=== PATIENT | male | born 1990 | race Caucasian/White ===

== ENCOUNTER 2016-09-22 14:50 | Emergency (ER) | payer BC, MEDICAID ==
[2016-09-22] MEDS ORDERED: ACETAMINOPHEN 325 MG TABLET PO ONE (15:08)
--- NOTE | 2016-09-22 15:09 | ER Document Report ---
ED Medical Screen (RME) - General Stated Complaint: CONGESTION,BODY ACHES,COUGH Notes: 26 yo male c/o flu like symptoms x 1 day. no flu shot. no sig PHHx. - Related Data Allergies/Adverse Reactions: No Known Allergies Allergy (Verified 09/22/16 15:09) Physical Exam - Vital signs Vitals: Temp Pulse Resp BP Pulse Ox 100.1 F 120 H 16 132/75 H 98 09/22/16 15:04 09/22/16 15:04 09/22/16 15:04 09/22/16 15:04 09/22/16 15:04 Course - Vital Signs Vital signs: Temp Pulse Resp BP Pulse Ox 100.1 F 120 H 16 132/75 H 98 09/22/16 15:04 09/22/16 15:04 09/22/16 15:04 09/22/16 15:04 09/22/16 15:04
[2016-09-22] MEDS ORDERED: IBUPROFEN 800 MG TABLET PO ONE (17:06)
--- NOTE | 2016-09-22 17:08 | ER Document Report ---
HPI - HPI Patient complains to provider of: body aches Onset: This morning Quality of pain: Achy Severity: Severe Pain Level: 5 Context: She presents to the emergency department with complaints of body aches that started this morning. Patient did not get his flu vaccine. He denies other symptoms like vomiting diarrhea. He reports he may have felt warm. Denies other symptoms such as cough sore throat. Associated Symptoms: None. denies: Diarrhea, Fever, Nausea, Vomiting Exacerbated by: Denies Relieved by: Denies Similar symptoms previously: No Recently seen / treated by doctor: No - CARDIOVASCULAR Cardiovascular: DENIES: Chest pain - DERM Skin Color: Normal Past Medical History - General Information source: Patient - Social History Smoking Status: Never Smoker Cigarette use (# per day): No Chew tobacco use (# tins/day): No Frequency of alcohol use: None Drug Abuse: None Occupation: none Family History: Reviewed & Not Pertinent Patient has suicidal ideation: No Patient has homicidal ideation: No - Medical History Medical History: Negative Renal/ Medical History: Denies: Hx Peritoneal Dialysis Surgical Hx: Negative Vertical Provider Document - CONSTITUTIONAL Agree With Documented VS: Yes Exam Limitations: No Limitations General Appearance: WD/WN, No Apparent Distress - nontoxic looking - INFECTION CONTROL TRAVEL OUTSIDE OF THE [place] IN LAST 30 DAYS: No - HEENT HEENT: Atraumatic, Normal ENT Exam, Normocephalic. negative: Pharyngeal Erythema, Tympanic Membrane Red - NECK Neck: Normal Inspection, Supple. negative: Lymphadenopathy-Left, Lymphadenopathy-Right - RESPIRATORY Respiratory: Breath Sounds Normal, No Respiratory Distress O2 Sat by Pulse Oximetry: 98 - CARDIOVASCULAR Cardiovascular: Regular Rhythm, Tachycardia - GI/ABDOMEN Gastrointestinal: Abdomen Soft, Abdomen Non-Tender - BACK Back: Normal Inspection - MUSCULOSKELETAL/EXTREMETIES Musculoskeletal/Extremeties: XIN ALVAREZ - NEURO Level of Consciousness: Awake, Alert, Appropriate Motor/Sensory: No Motor Deficit - DERM Integumentary: Warm, Dry, No Rash Course - Re-evaluation Re-evalutation: 09/22/16 1 Patient instructed on the importance of monitoring his temperature take Tylenol Motrin as indicated push fluids. He verbalized understanding to all instructions. No cough noted during the entire assessment and interview. - Vital Signs Vital signs: Temp Pulse Resp BP Pulse Ox 100.1 F 120 H 16 132/75 H 98 09/22/16 15:04 09/22/16 15:04 09/22/16 15:04 09/22/16 15:04 09/22/16 15:04 Discharge - Discharge Clinical Impression: Flu-like symptoms, Elevated blood pressure reading Condition: Stable Disposition: HOME, SELF-CARE Instructions: Acetaminophen, Influenza ([facility]) [id number] Additional Instructions: *You have been evaluated for flu like symptoms *Increase fluid intake as discussed *Take ibuprofen or tylenol as indicated for pain *Monitor your temperature, take Tylenol as indicated *Follow up with a primary care provider within one week for recheck *Good handwashing *Monitor your blood pressure. Your blood pressure was elevated today. This may be because you were anxious, in pain or because you need medication. It is important to follow up with your primary care provider for full evaluation. *Return to ED for worsening condition, changes, needs Forms: Elevated Blood Pressure
[2016-09-22 17:25] VITALS: BP 145/80
== END 2016-09-22 17:22 | disposition home or self-care (01) ==
LOC: ER 14:50
DX: R03.0 Elevated blood-pressure reading, without diagnosis of hypertension (principal); M79.1 Myalgia
CPT/HCPCS: 99283

== ENCOUNTER 2018-03-18 21:11 | Emergency (ER) | payer SELFPAY ==
[2018-03-18 21:19] VITALS: BP 153/90
--- NOTE | 2018-03-18 22:59 | ER Document Report ---
HPI - HPI Patient complains to provider of: left ear pain Pain Level: 4 Context: Patient is a 28-year-old male that comes to the emergency department for chief complaint of left ear pain. Symptoms started 3 days ago but have worsened. He states last night he is having trouble sleeping. He is hearing some popping sounds in the ear as well. He denies bleeding, discharge, fever, congestion, cough, nausea or vomiting. He denies any daily prescribed medications. He took ibuprofen earlier for pain. Past Medical History - General Information source: Patient - Social History Smoking Status: Never Smoker Frequency of alcohol use: Occasional Drug Abuse: None Lives with: Spouse/Significant other Family History: Reviewed & Not Pertinent - Medical History Medical History: Negative Renal/ Medical History: Denies: Hx Peritoneal Dialysis Surgical Hx: Negative - Immunizations Hx Diphtheria, Pertussis, Tetanus Vaccination: Yes Vertical Provider Document - CONSTITUTIONAL General Appearance: WD/WN, No Apparent Distress - INFECTION CONTROL TRAVEL OUTSIDE OF THE [place] IN LAST 30 DAYS: No - HEENT HEENT: Atraumatic, Normocephalic. negative: Normal ENT Exam - Left-sided otitis media with purulent effusion, no perforation, unremarkable canal, no tragal tenderness, normal mastoid, unremarkable ENT exam otherwise including oral pharyngeal exam and nasal exam. - NECK Neck: Normal Inspection - RESPIRATORY Respiratory: Breath Sounds Normal, No Respiratory Distress - CARDIOVASCULAR Cardiovascular: Regular Rate, Regular Rhythm - GI/ABDOMEN Gastrointestinal: Abdomen Soft, Abdomen Non-Tender - BACK Back: Normal Inspection - NEURO Level of Consciousness: Awake, Alert, Appropriate - DERM Integumentary: Warm, Dry, No Rash Course - Re-evaluation Re-evalutation: Physical examination shows otitis media, no other concerning a normality is noted. Patient mildly hypertensive, vital signs otherwise unremarkable. Discussed follow-up, expectations, return precautions. Patient states understanding and agreement. - Vital Signs Vital signs: Temp Pulse Resp BP Pulse Ox 98 F 60 18 153/90 H 98 03/18/18 21:16 03/18/18 21:16 03/18/18 21:16 03/18/18 21:16 03/18/18 21:16 Discharge - Discharge Clinical Impression: Left ear pain Otitis media Qualifiers: Otitis media type: suppurative Chronicity: acute Laterality: left Recurrence: not specified as recurrent Spontaneous tympanic membrane rupture: without spontaneous rupture Qualified Code(s): H66.002 - Acute suppurative otitis media without spontaneous rupture of ear drum, left ear Condition: Stable Disposition: HOME, SELF-CARE Additional Instructions: Your examination is consistent with a left middle ear infection. Take antibiotics as prescribed. [id number] nasal spray such as Nasonex or Flonase can help reduce symptoms and prevent symptoms in the future. Take ibuprofen or Tylenol during the day, use medication given here only at night if needed to sleep. Follow-up with primary care. Return if you worsen including fever of 100.4 or greater, severe pain, dizziness, vomiting, or any other concerning symptoms. Prescriptions: Amoxicillin Trihydrate [Amoxil 875 mg Tablet] 1 tab PO BID #20 tablet Forms: Elevated Blood Pressure
[2018-03-18] MEDS: AMOXICILLIN TRIHYDRATE 500 MG CAPSULE PO ONE (23:10)
[2018-03-18] MEDS: HYDROCODONE/ACETAMINOPHEN 5-325 MG (6 TAB/ER DISP) PO PRN (23:11)
== END 2018-03-18 23:17 | disposition home or self-care (01) ==
LOC: ER 21:11
DX: H66.002 Acute suppurative otitis media without spontaneous rupture of ear drum, left ear (principal); H92.02 Otalgia, left ear
CPT/HCPCS: 99282

== ENCOUNTER 2019-02-02 22:59 | Emergency (ER) | payer OTHER ==
[2019-02-03] MEDS ORDERED: NAPROXEN 250 MG TABLET PO ONE (01:21)
[2019-02-03] MEDS ORDERED: DIAZEPAM 5 MG TABLET PO ONE (01:21)
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
[2019-02-03 01:37] VITALS: BP 137/96
== END 2019-02-03 01:35 | disposition home or self-care (01) ==
LOC: ER 22:59
DX: M54.9 Dorsalgia, unspecified (principal); R10.9 Unspecified abdominal pain; V53.5XXA Driver of pick-up truck or van injured in collision with car, pick-up truck or van in traffic accident, initial encounter
CPT/HCPCS: 99283

== ENCOUNTER 2019-02-04 21:32 | Emergency (ER) | payer OTHER ==
[2019-02-04] MEDS ORDERED: OXYCODONE-ACETAMINOPHEN 5-325 MG TABLET PO ONE (23:15)
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
[2019-02-05 00:13] LABS: ABSOLUTE BASOPHILS # (AUTO) 0.1 10^3/uL (0.0-0.2); ABSOLUTE EOSINOPHILS # (AUTO) 0.2 10^3/uL (0.0-0.6); ABSOLUTE LYMPHOCYTES (AUTO) 2.6 10^3/uL (0.5-4.7); ABSOLUTE MONOCYTES (AUTO) 0.5 10^3/uL (0.1-1.4); ABSOLUTE NEUT (AUTO) 4.2 10^3/uL (1.7-8.2); BASOPHILS % (AUTO) 0.8 % (0-2); EOSINOPHILS % (AUTO) 3.2 % (0-6); HEMATOCRIT 44.6 % (37.9-51.0); LYMPHOCYTES % (AUTO) 34.4 % (13-45); MEAN CORPUSCULAR HEMOGLOBIN 30.7 pg (27.0-33.4); MEAN CORPUSCULAR HGB CONC 35.8 g/dL (32.0-36.0); MEAN CORPUSCULAR VOLUME 86 fl (80-97); MONOCYTES % (AUTO) 6.9 % (3-13); PLATELET COUNT 189 10^3/uL (150-450); RED CELL DISTRIBUTION WIDTH 13.2 % (11.5-14.0); SEGMENTED NEUTROPHILS % (AUTO) 54.7 % (42-78); TOTAL CELLS COUNTED % (AUTO) 100 %; WHITE BLOOD COUNT 7.7 10^3/uL (4.0-10.5)
[2019-02-05 00:16] LABS: APPEARANCE,URINE CLEAR; BILIRUBIN,URINE NEGATIVE (NEGATIVE); COLOR,URINE YELLOW; GLUCOSE, URINE NEGATIVE (NEGATIVE); KETONES,URINE NEGATIVE (NEGATIVE); LEUKOCYTE ESTERASE,URINE NEGATIVE (NEGATIVE); NITRITE,URINE NEGATIVE (NEGATIVE); PROTEIN,URINE NEGATIVE (NEGATIVE); URINE SPECIFIC GRAVITY 1.019
[2019-02-05 00:31] LABS: ALANINE AMINOTRANSFERASE 53 U/L (21-72); ALBUMIN 4.7 g/dL (3.5-5.0); ALKALINE PHOSPHATASE 62 U/L (38-126); ANION GAP 10 (5-19); ASPARTATE AMINO TRANSFERASE 31 U/L (17-59); BILIRUBIN,DIRECT 0.3 mg/dL (0.0-0.4); BILIRUBIN,TOTAL 0.5 mg/dL (0.2-1.3); BLOOD UREA NITROGEN 14 mg/dL (7-20); CALCIUM 9.6 mg/dL (8.4-10.2); CARBON DIOXIDE 26 mmol/L (22-30); CHLORIDE 103 mmol/L (98-107); GLUCOSE 91 mg/dL (75-110); POTASSIUM 4.6 mmol/L (3.6-5.0); SODIUM 138.8 mmol/L (137-145); TOTAL PROTEIN 7.7 g/dL (6.3-8.2)
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
[2019-02-05 02:01] VITALS: BP 136/75
== END 2019-02-05 02:01 | disposition home or self-care (01) ==
LOC: ER 21:32
DX: S30.1XXA Contusion of abdominal wall, initial encounter (principal); R10.9 Unspecified abdominal pain; V49.60XA Unspecified car occupant injured in collision with unspecified motor vehicles in traffic accident, initial encounter
CPT/HCPCS: 36415; 74177; 80053; 81001; 85025; 99284

== ENCOUNTER 2019-02-17 23:12 | Emergency (ER) | payer OTHER ==
--- NOTE | 2019-02-18 02:30 | RADIOLOGY REPORT (SQ) ---
EXAM DESCRIPTION: XR CHEST 2 VIEWS COMPLETED DATE/TME: 02/18/2019 02:06 CLINICAL HISTORY: 29 years, Male, cough x2 weeks, worsening Comparison: None FINDINGS: No focal lung consolidation. No pleural effusion. No pneumothorax. Cardiac and mediastinal silhouette is unremarkable. No acute osseous abnormality. Soft tissues are unremarkable. IMPRESSION: No acute findings. No focal lung consolidation.
[2019-02-18] MEDS ORDERED: IPRATROPIUM/ALBUTEROL 0.5-2.5 MG/3 ML AMPUL NEB ONE (02:43)
[2019-02-18] MEDS ORDERED: DEXAMETHASONE SOD PHOS INJ 10 MG/1 ML VIAL IM ONE (02:43)
[2019-02-18] MEDS ORDERED: BENZONATATE 100 MG CAPSULE PO ONE (02:43)
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
[2019-02-18] MEDS ORDERED: ALBUTEROL SULFATE HFA (90 MCG/PUFF) 8 GM MDI (1 MDI/ER DISP) IH ONE (03:19)
[2019-02-18 03:30] VITALS: BP 126/78
== END 2019-02-18 03:30 | disposition home or self-care (01) ==
LOC: ER 23:12
DX: J40 Bronchitis, not specified as acute or chronic (principal)
CPT/HCPCS: 94640; 99283; 96372; 71046; J1100; J3490; J7620

== ENCOUNTER 2019-02-27 14:37 | Emergency (ER) | payer OTHER ==
[2019-02-27] MEDS ORDERED: LIDOCAINE 2% VISCOUS SOLN 20 ML UDCUP PO ONE (15:44)
[2019-02-27] MEDS ORDERED: KETOROLAC TROMETHAMINE 60 MG/2 ML SDV IM ONE (15:44)
--- NOTE | 2019-02-27 15:50 | ER Document Report ---
ED General - General Chief Complaint: Breathing Difficulty Stated Complaint: HEADACHE Time Seen by Provider: 02/27/19 15:36 Primary Care Provider: [facility] [NO LOCAL MD] - Follow up as needed TRAVEL OUTSIDE OF THE [place] IN LAST 30 DAYS: No - HPI Notes: 29 year old male to the ED with C/O persistent cough, tussive chest pain, sore throat, headache, nasal congestion that has been ongoing for two weeks. He was seen here February 17 for the same and diagnosed with Bronchitis. States that he was given tessalon perles. States he has been taking that plus an inhaler and mucinex and he has not gotten better. States that he has been coughing quite alot as well as sneezing. Every time he coughs, he has sharp pain in his throat and in his chest. On February 17, he had a negative CXR. He is not producing any sputum. Reports subjective fevers at home, but none measured. He states he - Related Data Allergies/Adverse Reactions: No Known Allergies Allergy (Verified 02/27/19 14:55) Past Medical History - Social History Smoking Status: Never Smoker Frequency of alcohol use: Social Drug Abuse: None Family History: Reviewed & Not Pertinent Patient has suicidal ideation: No Patient has homicidal ideation: No Renal/ Medical History: Denies: Hx Peritoneal Dialysis - Immunizations Hx Diphtheria, Pertussis, Tetanus Vaccination: Yes Review of Systems - Review of Systems Constitutional: Chills, Fever - subjective fever, Malaise EENT: Ear pain, Nose congestion, Throat pain Cardiovascular: No symptoms reported, See HPI, Chest pain - tussive chest pain, Heart racing, Orthopnea, Syncope, Dizziness, Lightheaded. denies: Palpitations, Dyspnea, Edema Respiratory: Cough, Hurts to breathe, Sputum Gastrointestinal: Abdominal pain, Diarrhea, Nausea, Vomiting Genitourinary: No symptoms reported Musculoskeletal: No symptoms reported, See HPI Skin: No symptoms reported -: Yes All other systems reviewed and negative Physical Exam - Vital signs Vitals: Temp Pulse Resp BP Pulse Ox 98.1 F 109 H 17 143/84 H 96 02/27/19 14:59 02/27/19 14:59 02/27/19 14:59 02/27/19 14:59 02/27/19 14:59 Interpretation: Normal - General General appearance: Appears well, Alert - HEENT Head: Normocephalic, Atraumatic Eyes: Normal Ears: Normal External canal: Normal Tympanic membrane: Normal Sinus: Normal Nasal: Clear rhinorrhea Mouth/Lips: Normal Pharynx: Erythema - injection to the posterior oropharynx with cobblestoning, Post nasal drainage. No: Exudate, Peritonsillar abscess, Retropharyngeal abscess, Tonsillar hypertrophy, Uvular edema, Potential airway comprom. - Respiratory Respiratory status: No respiratory distress. No: Respiratory distress, Depressed respirations, Labored, Pursed lip breathing, Retractions, Tachypnea, Tripod position Chest status: Tender, Pain with cough, Pain with deep breathing. No: Nontender, Chest mass, Ecchymosis, No pleuritic chest pain Breath sounds: Normal, Nonproductive cough, Other. No: Decreased air movement, Rales, Rhonchi, Stridor, Wheezing Chest palpation: Normal - Cardiovascular Rhythm: Regular Heart sounds: Normal auscultation Murmur: No - Abdominal Inspection: Normal Distension: No distension Bowel sounds: Normal Tenderness: Nontender Organomegaly: No organomegaly - Back Back: Normal, Nontender - Neurological Neuro grossly intact: Yes Cognition: Normal Orientation: AAOx4 [place] Coma Scale Eye Opening: Spontaneous [place] Coma Scale Verbal: Oriented [place] Coma Scale Motor: Obeys Commands [place] Coma Scale Total: 15 Speech: Normal Motor strength normal: LUE, RUE, LLE, RLE Sensory: Normal - Psychological Associated symptoms: Normal affect, Normal mood - Skin Skin Temperature: Warm Skin Moisture: Dry Skin Color: Normal Course - Re-evaluation Re-evalutation: Impression: Acute bronchitis with costochrondritis. Had a negative XR 10 days ago. Will start on Abx, steroids, give cough syrup. Given his lung auscultation is reassuring and he is not hypoxic, do not think that repeat plain film is necessary. URged patient to return if his symptoms worsen at all. He agrees with the plan. - Vital Signs Vital signs: Temp Pulse Resp BP Pulse Ox 98.3 F 93 18 138/81 H 98 02/27/19 16:17 02/27/19 16:17 02/27/19 16:17 02/27/19 16:17 02/27/19 16:17 Noted improved vital since since arrival. Discharge - Discharge Clinical Impression: Bronchitis, Costochondritis, Elevated blood pressure reading Condition: Stable Disposition: HOME, SELF-CARE Instructions: Bronchitis ([facility]), Costochondritis ([facility]) Additional Instructions: PUSH FLUIDS. COMPLETE ALL ANTIBIOTICS. REST AT HOME. RETURN IF WORSENING PAIN, SHORTNESS OF BREATH. FOLLOW UP WITH PRIMARY CARE BY END OF THE WEEK. Prescriptions: Ibuprofen [Motrin 600 mg Tablet] 600 mg PO Q8HP PRN #20 tablet PRN Reason: Codeine Phosphate/Guaifenesin [Cheratussin AC Syrup] 10 ml PO Q6H #120 ml Doxycycline Hyclate 100 mg PO BID #20 capsule Prednisone [Deltasone 10 mg Tablet] 10 mg PO ASDIR #21 tablet Forms: Return to Work [facility]: [facility] [NO LOCAL MD] - Follow up as needed
[2019-02-27 16:31] VITALS: BP 138/81
== END 2019-02-27 16:36 | disposition home or self-care (01) ==
LOC: ER 14:37
DX: J20.9 Acute bronchitis, unspecified (principal); M94.0 Chondrocostal junction syndrome [Tietze]; R03.0 Elevated blood-pressure reading, without diagnosis of hypertension; R05 Cough; J02.9 Acute pharyngitis, unspecified; R51 Headache; R09.81 Nasal congestion; R06.7 Sneezing; R68.83 Chills (without fever); R53.81 Other malaise; H92.09 Otalgia, unspecified ear; J34.89 Other specified disorders of nose and nasal sinuses; R07.1 Chest pain on breathing
CPT/HCPCS: 99283; 96372; J1885; J3490

== ENCOUNTER 2020-08-27 12:04 | Emergency (ER) | payer SELFPAY ==
[2020-08-27 12:11] VITALS: BP 147/89
--- NOTE | 2020-08-27 12:37 | ER Document Report ---
HPI - HPI Time Seen by Provider: 08/27/20 12:28 Pain Level: Denies Context: Patient is a 30-year-old male who presents emergency department with a chief complaint of cough. Patient reports he was driving to work this morning when he developed a 30-minute episode of coughing. He states he was coughing up a clear mucus. Patient reports that his cough has subsided since then but he does feel irritation to the back of his throat. Denies sore throat. Denies sick co ntacts. Patient states he wanted to be checked out prior to returning to work. Patient did have a rapid Covid test prior to arrival which was negative. Patient is requesting a Covid test if possible due to his having multiple sclerosis. Patient denies any known sick contacts. - CONSTITUTIONAL Constitutional: DENIES: Fever, Chills - RESPIRATORY Respiratory: REPORTS: Coughing Past Medical History - General Information source: Patient - Social History Smoking Status: Never Smoker Frequency of alcohol use: Occasional Lives with: Spouse/Significant other Family History: Reviewed & Not Pertinent - Past Medical History Cardiac Medical History: Reports: None Pulmonary Medical History: Reports: None Neurological Medical History: Reports: None Endocrine Medical History: Reports: None Renal/ Medical History: Reports: None. Denies: Hx Peritoneal Dialysis Malignancy Medical History: Reports None GI Medical History: Reports: None Musculoskeletal Medical History: Reports None Skin Medical History: Reports None Psychiatric Medical History: Reports: None Traumatic Medical History: Reports: None Infectious Medical History: Reports: None Surgical Hx: Negative - Immunizations Hx Diphtheria, Pertussis, Tetanus Vaccination: Yes Vertical Provider Document - CONSTITUTIONAL Agree With Documented VS: Yes Exam Limitations: No Limitations General Appearance: No Apparent Distress - INFECTION CONTROL TRAVEL OUTSIDE OF THE [place] IN LAST 30 DAYS: No - HEENT HEENT: Atraumatic, Normal ENT Exam, Normocephalic, PERRLA - RESPIRATORY Respiratory: Breath Sounds Normal, No Respiratory Distress - CARDIOVASCULAR Cardiovascular: Regular Rate, Regular Rhythm - GI/ABDOMEN Gastrointestinal: Abdomen Soft, Abdomen Non-Tender, Normal Bowel Sounds - NEURO Level of Consciousness: Awake, Alert, Appropriate - DERM Integumentary: Warm, Dry, No Rash Course - Re-evaluation Re-evalutation: 08/27/20 12:36 No radiology or lab studies needed at this time. Patient is not currently coughing. We will test for Covid. Patient to quarantine until results have been received. Patient aware. Patient denies questions. - Vital Signs Vital signs: Temp Pulse Resp BP Pulse Ox 98.3 F 84 16 147/89 H 98 08/27/20 12:10 08/27/20 12:10 08/27/20 12:10 08/27/20 12:10 08/27/20 12:10 - Laboratory Results Critical Laboratory Results Reviewed: No Critical Results - Radiology Results Critical Radiology Results Reviewed: No Critical Results Discharge - Discharge Clinical Impression: Cough Condition: Stable Disposition: HOME, SELF-CARE Additional Instructions: Today are seen in the emergency department for cough. You were tested for Covid. Your results should return in the next 2 to 3 days. If you have not heard of the results you can contact the hospital. Please stay out of work, stay home and quarantine until your results have returned. Wear a mask and practice good handwashing. You can use [id number] throat lozenges as needed for irritation to your throat and cough. Return if symptoms worsen or change.
== END 2020-08-27 12:48 | disposition home or self-care (01) ==
LOC: ER 12:04
DX: R05 Cough (principal); R09.89 Other specified symptoms and signs involving the circulatory and respiratory systems; Z20.822 Contact with and (suspected) exposure to COVID-19
CPT/HCPCS: 99283; 36415; 87635; C9803